=== PATIENT | female | born 1980 | race African-American/Black ===

== ENCOUNTER → 2016-10-09 | Emergency (ER) | payer MEDICAID ==
[~2016-10-09] VITALS: Ht 165.1 cm; Wt 83.5 kg
[~2016-10-09] MED LIST: IV NS 0.9% 1,000 ML BAG IV ONE; IV NS 0.9% 1,000 ML ONE; IV SET PRIMARY 1 EA INFUS.SET MC ONE; KETOROLAC TROMETHAMINE INJ 30 MG/ML VIAL IV ONE; KETOROLAC TROMETHAMINE INJ 30 MG/ML VIAL ONE
--- NOTE | 2016-10-09 09:05 | NUR ---
PT TO ED ROOM 08. LOWER ABDOMINAL PAIN AND SWELLING X 3 MONTHS. A/A/O. AMBULATORY W/SEADY GAIT. SIDE RAILS UP. HOB ELEVATED. CONNECTED TO MONITOR. AWAITING EVALUATION BY ER PROVIDER.
[2016-10-09 09:13] VITALS: BP 130/99
--- NOTE | 2016-10-09 09:30 | NUR ---
R AC G 20 IV STARTED, CONVERTED TO SALINE LOCK. BLOOD TESTS DRAWN AND SEND TO LAB.
--- NOTE | 2016-10-09 09:33 | NUR ---
URINE SAMPLE COLLECTED FROM PATIENTS AND SEND TO LAB.
[2016-10-09 09:41] LABS: BASOPHILS % (AUTO) 0.5 % (0.0-2.0); EOSINOPHILS # (AUTO) 0.1 /CMM (0.0-0.7); EOSINOPHILS % (AUTO) 1.8 % (0.0-6.0); HEMATOCRIT 38 % (33-45); HEMOGLOBIN 12.3 g/dL (11.5-14.8); LYMPHOCYTES # (AUTO) 1.9 /CMM (0.8-4.8); LYMPHOCYTES % (AUTO) 31.1 % (20.0-44.0); MEAN CORPUSCULAR HEMOGLOBIN 25 PG (26.0-33.0); MEAN CORPUSCULAR HGB CONC 33 g/dl (31.0-36.0); MEAN CORPUSCULAR VOLUME 76 fL (82-100); MONOCYTES # (AUTO) 0.5 /CMM (0.1-1.30); MONOCYTES % (AUTO) 8.9 % (2.0-12.0); NEUTROPHILS # (AUTO) 3.5 /CMM (1.8-8.9); NEUTROPHILS % (AUTO) 57.7 % (43.0-81.0); PLATELET COUNT (AUTO) 298 /CMM (150-450); RDW COEFFICIENT OF VARIATION 14.2 (11.5-15.0); RED BLOOD CELL COUNT(AUTO) 4.96 MIL/uL (4.0-5.2)
[2016-10-09 09:43] LABS: APPEARANCE,URINE CLEAR (CLEAR); BILIRUBIN,URINE NEGATIVE (NEGATIVE); BLOOD, URINE TRACE Ery/uL (NEGATIVE); COLOR,URINE YELLOW (YELLOW); KETONES,URINE NEGATIVE (NEGATIVE); LEUKOCYTE ESTERASE ,URINE 1+ (NEGATIVE); NITRITE, URINE NEGATIVE (NEGATIVE); PH,URINE 5.5 (5.0-8.0); PROTEIN,URINE NEGATIVE (NEGATIVE); UGLUCOSE NEGATIVE (NEGATIVE); UROBILINOGEN,URINE 0.2 EU/dL (0.2)
[2016-10-09 09:47] LABS: PREGNANCY TEST URINE QUAL NEGATIVE (NEGATIVE)
[2016-10-09 09:50] LABS: CALCIUM, SERUM 8.7 mg/dL (8.5-10.1); CREATININE 0.9 mg/dL (0.6-1.3)
[2016-10-09 09:53] LABS: ADD URINE CULTURE YES; BACTERIA,URINE Rare /HPF (None Seen); SQUAMOUS EPITHELIAL CELL,UR Few /HPF (None Seen)
[2016-10-09 09:56] LABS: ALBUMIN 3.2 g/dL (3.4-5.0); BILIRUBIN,DIRECT 0.1 mg/dL (0.0-0.2); BILIRUBIN,TOTAL 0.2 mg/dL (0.2-1.0); TOTAL PROTEIN, SERUM 7.5 g/dL (6.4-8.2)
== END | disposition home or self-care (01) ==
LOC: ER 09:02
DX: R10.30 Lower abdominal pain, unspecified (principal); Z90.5 Acquired absence of kidney
CPT/HCPCS: 36415; 74176; 80048; 80076; 81001; 83690; 84703; 85025; 87086; 96360; 99285; A4606; J1885; J7030; Z7610; 81000-TC; 87186-TC

== ENCOUNTER 2016-10-20 06:43 | Inpatient (IN) | payer MEDICAID ==
[~2016-10-20] VITALS: Ht 165.1 cm; Wt 89.8 kg
[2016-10-20] MEDS ORDERED: ONDANSETRON HCL/PF 4 MG/2 ML VIAL ONE ×2 (06:55→11:14)
[2016-10-20] MEDS ORDERED: HYDROMORPHONE 1 MG/1 ML DISP.SYRIN ONE ×2 (06:55→07:59)
[2016-10-20] MEDS ORDERED: IV SET PRIMARY 1 EA INFUS.SET MC ONE ×3 (06:55→10:05)
[2016-10-20] MEDS ORDERED: IV NS 0.9% 1,000 ML ONE ×3 (06:55→11:14)
[2016-10-20] MEDS ORDERED: KETOROLAC TROMETHAMINE INJ 30 MG/ML VIAL ONE (06:55)
[2016-10-20] MEDS ORDERED: KETOROLAC TROMETHAMINE INJ 30 MG/ML VIAL IV ONE ×2 (07:00→08:00)
[2016-10-20] MEDS ORDERED: IV NS 0.9% 1,000 ML BAG IV ONE (07:00)
[2016-10-20] MEDS ORDERED: HYDROMORPHONE INJ 2 MG/ML DISP.SYRIN IV ONE (07:00)
[2016-10-20] MEDS ORDERED: ONDANSETRON HCL/PF 4 MG/2 ML VIAL IVP ONE (07:00)
[2016-10-20 07:12] LABS: BASOPHILS % (AUTO) 0.6 % (0.0-2.0); EOSINOPHILS # (AUTO) 0.2 /CMM (0.0-0.7); EOSINOPHILS % (AUTO) 2.4 % (0.0-6.0); HEMATOCRIT 40 % (33-45); HEMOGLOBIN 13.2 g/dL (11.5-14.8); LYMPHOCYTES # (AUTO) 2.5 /CMM (0.8-4.8); MEAN CORPUSCULAR HEMOGLOBIN 25 PG (26.0-33.0); MEAN CORPUSCULAR HGB CONC 33 g/dl (31.0-36.0); MEAN CORPUSCULAR VOLUME 76 fL (82-100); MONOCYTES # (AUTO) 0.8 /CMM (0.1-1.30); NEUTROPHILS # (AUTO) 3.1 /CMM (1.8-8.9); PLATELET COUNT (AUTO) 313 /CMM (150-450); RDW COEFFICIENT OF VARIATION 14.5 (11.5-15.0); RED BLOOD CELL COUNT(AUTO) 5.26 MIL/uL (4.0-5.2); WHITE BLOOD COUNT (AUTO) 6.5 K/uL (4.3-11.0)
[2016-10-20 07:26] LABS: CALCIUM, SERUM 8.7 mg/dL (8.5-10.1); CREATININE 1.1 mg/dL (0.6-1.3); POTASSIUM 3.9 mmol/L (3.5-5.1)
[2016-10-20 07:33] LABS: ALBUMIN 3.5 g/dL (3.4-5.0); BILIRUBIN,DIRECT 0.1 mg/dL (0.0-0.2); BILIRUBIN,TOTAL 0.2 mg/dL (0.2-1.0)
[2016-10-20] MEDS ORDERED: KETOROLAC TROMETHAMINE 15 MG/ML VIAL ONE (07:38)
[2016-10-20] MEDS ORDERED: HYDROMORPHONE 1 MG/1 ML DISP.SYRIN IV ONE (08:00)
[2016-10-20] MEDS ORDERED: IV NS 0.9% 1,000 ML IV ONE ×2 (08:00→11:30)
[2016-10-20 09:12] LABS: APPEARANCE,URINE CLOUDY (CLEAR); BILIRUBIN,URINE NEGATIVE (NEGATIVE); BLOOD, URINE 3+ Ery/uL (NEGATIVE); COLOR,URINE YELLOW (YELLOW); KETONES,URINE NEGATIVE (NEGATIVE); LEUKOCYTE ESTERASE ,URINE 3+ (NEGATIVE); NITRITE, URINE POSITIVE (NEGATIVE); PROTEIN,URINE NEGATIVE (NEGATIVE); UGLUCOSE NEGATIVE (NEGATIVE); UROBILINOGEN,URINE 0.2 EU/dL (0.2)
[2016-10-20 09:20] LABS: PREGNANCY TEST URINE QUAL NEGATIVE (NEGATIVE)
[2016-10-20 09:26] LABS: BACTERIA,URINE Moderate /HPF (None Seen); RBC,URINE 15-20 /HPF (0-2); SQUAMOUS EPITHELIAL CELL,UR Few /HPF (None Seen); WBC,URINE 80-100 /HPF (0-3)
[2016-10-20] MEDS ORDERED: CEFTRIAXONE 1GM BAG (ER ONLY) 1 GM/50 ML PIGGYBACK IV ONE (10:00)
[2016-10-20] MEDS ORDERED: CEFTRIAXONE 1GM BAG (ER ONLY) 50 ML IV ONE (10:05)
[2016-10-20] MEDS ORDERED: TAMSULOSIN 0.4 MG CAP.SR.24H ONE (11:14)
[2016-10-20] MEDS ORDERED: IV SET PRIMARY PUMP SET 1 EA INFUS.SET MC ONE ×2 (11:21→12:56)
[2016-10-20] MEDS ORDERED: TAMSULOSIN 0.4 MG CAP.SR.24H PO ONE (11:30)
[2016-10-20] MEDS ORDERED: ONDANSETRON HCL/PF - ER 4 MG/2 ML VIAL IV ONE (11:30)
[2016-10-20 12:00] VITALS: BP 140/85
[2016-10-20] MEDS ORDERED: CEFTRIAXONE 1 G VIAL IM SCH (13:00)
[2016-10-20] MEDS ORDERED: KETOROLAC TROMETHAMINE INJ 30 MG/ML VIAL IM SCH (13:00)
[2016-10-20] MEDS ORDERED: Potassium Chloride 10 MEQ in IV NS 0.9% 1,000 ML IV PRN (13:00)
[2016-10-20] MEDS: ACETAMINOPHEN 325 MG TABLET PO PRN ×2 (13:01→20:15)
[2016-10-20 13:51] VITALS: BP 146/85
[2016-10-20] MEDS: ONDANSETRON HCL/PF 4 MG/2 ML VIAL IV PRN ×3 (14:13→22:32)
[2016-10-20] MEDS: HYDROMORPHONE 1 MG/1 ML DISP.SYRIN IV PRN ×3 (14:17→20:17)
[2016-10-20] MEDS ORDERED: SECONDARY IV SET 1 EA INFUS.SET MC ONE (14:24)
[2016-10-20] MEDS: CEFTRIAXONE 1 G in IV D5W 50 ML IV SCH (14:31)
[2016-10-20 16:12] VITALS: BP 104/63
[2016-10-20] MEDS: NICOTINE PATCH (21MG) 21 MG PATCH.TD24 TD SCH (17:11)
[2016-10-20] MEDS ORDERED: KETOROLAC TROMETHAMINE INJ 30 MG/ML VIAL IV SCH (19:00)
[2016-10-20 20:37] VITALS: BP 102/52
[2016-10-20 22:00] VITALS: BP 102/52
[2016-10-20] MEDS ORDERED: TAMSULOSIN 0.4 MG CAP.SR.24H PO SCH (22:00)
[2016-10-21] MEDS: HYDROMORPHONE 1 MG/1 ML DISP.SYRIN IV PRN ×4 (01:45→17:10)
[2016-10-21 06:31] LABS: HEMATOCRIT 33 % (33-45); HEMOGLOBIN 10.9 g/dL (11.5-14.8); LYMPHOCYTES # (AUTO) 0.9 /CMM (0.8-4.8); LYMPHOCYTES % (AUTO) 3.7 % (20.0-44.0); MEAN CORPUSCULAR HEMOGLOBIN 26 PG (26.0-33.0); MEAN CORPUSCULAR HGB CONC 33 g/dl (31.0-36.0); MEAN CORPUSCULAR VOLUME 77 fL (82-100); MONOCYTES # (AUTO) 0.8 /CMM (0.1-1.30); MONOCYTES % (AUTO) 3.4 % (2.0-12.0); NEUTROPHILS # (AUTO) 22.6 /CMM (1.8-8.9); NEUTROPHILS % (AUTO) 92.9 % (43.0-81.0); PLATELET COUNT (AUTO) 188 /CMM (150-450); RDW COEFFICIENT OF VARIATION 14.9 (11.5-15.0); RED BLOOD CELL COUNT(AUTO) 4.26 MIL/uL (4.0-5.2); WHITE BLOOD COUNT (AUTO) 24.3 K/uL (4.3-11.0)
[2016-10-21] MEDS: ONDANSETRON HCL/PF 4 MG/2 ML VIAL IV PRN ×2 (06:34→11:09)
[2016-10-21 06:46] LABS: CALCIUM, SERUM 7.9 mg/dL (8.5-10.1); CREATININE 2.7 mg/dL (0.6-1.3); POTASSIUM 4.3 mmol/L (3.5-5.1)
[2016-10-21 08:00] VITALS: BP 111/62
[2016-10-21] MEDS: NICOTINE PATCH (21MG) 21 MG PATCH.TD24 TD SCH (08:24)
[2016-10-21] MEDS: ACETAMINOPHEN 325 MG TABLET PO PRN (11:13)
[2016-10-21] MEDS ORDERED: IV NS 0.9% 250 ML IV ONE (14:08)
[2016-10-21] MEDS ORDERED: SECONDARY IV SET 1 EA INFUS.SET MC ONE (14:09)
[2016-10-21] MEDS ORDERED: IV SET PRIMARY PUMP SET 1 EA INFUS.SET MC ONE (14:10)
[2016-10-21] MEDS: CEFTRIAXONE 1 G in IV D5W 50 ML IV SCH (14:11)
[2016-10-21 16:00] VITALS: BP 102/57
[2016-10-21] MEDS ORDERED: BISACODYL (5 MG) 5 MG TABLET.DR PO ONE (16:00)
== END 2016-10-21 17:30 | disposition home or self-care (01) | DRG 463 ==
LOC: ER 06:45 → MEDSG2 12:15
PROVIDERS: ADMIT Internal Medicine; ATTEND Internal Medicine
DX: N13.6 Pyonephrosis (principal); B96.20 Unspecified Escherichia coli [E. coli] as the cause of diseases classified elsewhere; F17.210 Nicotine dependence, cigarettes, uncomplicated; Z87.442 Personal history of urinary calculi; Z90.5 Acquired absence of kidney; N39.0 Urinary tract infection, site not specified
CPT/HCPCS: 36415; 80048-TC; 80076-TC; 81000-TC; 83690-TC; 84703-TC; 85025-TC; 87081-TC; 87086-TC; 87186-TC; A4606; J0696; J1170; J1885; J2405; J3480; J7030; J7050; J7060; Z7610

== ENCOUNTER 2018-08-25 22:32 | Emergency (ER) | payer MEDICAID ==
[~2018-08-25] VITALS: Ht 167.6 cm; Wt 104.4 kg
--- NOTE | 2018-08-25 22:50 | NUR ---
PT BIBSELF FROM HOME FOR COUGH/CONGESTION/SORE THROAT X 1YR; PT AAOX4, PT ON MONITOR, VSS, NAD NOTED, VSS. PENDING MD COLIN
[2018-08-26 00:26] LABS: APPEARANCE,URINE Clear (CLEAR); BILIRUBIN,URINE Negative (NEGATIVE); BLOOD, URINE Negative Ery/uL (NEGATIVE); COLOR,URINE Yellow (YELLOW); KETONES,URINE Negative (NEGATIVE); LEUKOCYTE ESTERASE ,URINE Negative (NEGATIVE); NITRITE, URINE Negative (NEGATIVE); PROTEIN,URINE Negative (NEGATIVE); UGLUCOSE Negative (NEGATIVE); UROBILINOGEN,URINE 0.2 EU/dL (0.2)
[2018-08-26 00:32] LABS: BASOPHILS # (AUTO) 0.2 /CMM (0.0-0.2); BASOPHILS % (AUTO) 2.9 % (0.0-2.0); EOSINOPHILS % (AUTO) 4.3 % (0.0-6.0); HEMATOCRIT 39 % (33-45); LYMPHOCYTES # (AUTO) 2.1 /CMM (0.8-4.8); LYMPHOCYTES % (AUTO) 28.5 % (20.0-44.0); MEAN CORPUSCULAR HGB CONC 33 g/dl (31.0-36.0); MEAN CORPUSCULAR VOLUME 78 fL (82-100); MONOCYTES # (AUTO) 0.8 /CMM (0.1-1.30); MONOCYTES % (AUTO) 11.6 % (2.0-12.0); NEUTROPHILS # (AUTO) 3.8 /CMM (1.8-8.9); NEUTROPHILS % (AUTO) 52.7 % (43.0-81.0); PLATELET COUNT (AUTO) 317 /CMM (150-450); RED BLOOD CELL COUNT(AUTO) 5.01 MIL/uL (4.0-5.2); WHITE BLOOD COUNT (AUTO) 7.2 K/uL (4.3-11.0)
[2018-08-26 00:45] LABS: ALBUMIN 3.3 g/dL (3.4-5.0); BILIRUBIN,TOTAL 0.1 mg/dL (0.2-1.0); TOTAL PROTEIN, SERUM 7.9 g/dL (6.4-8.2)
[2018-08-26] MEDS ORDERED: MAG HYDROX/AL HYDROX/SIMETH 30 ML UDC PO ONE (01:00)
[2018-08-26] MEDS ORDERED: MAG HYDROX/AL HYDROX/SIMETH 30 ML UDC ONE (01:07)
[2018-08-26 01:11] LABS: CALCIUM, SERUM 8.5 mg/dL (8.5-10.1); POTASSIUM 4.1 mmol/L (3.5-5.1)
[2018-08-26 01:12] LABS: CREATININE 0.8 mg/dL (0.6-1.3)
--- NOTE | 2018-08-26 01:19 | NUR ---
CALLED [facility] TO HAVE CT READ. 1ST CALL
[2018-08-26 02:34] VITALS: BP 133/88
== END 2018-08-26 02:37 | disposition home or self-care (01) ==
LOC: ER 22:34
DX: K43.9 Ventral hernia without obstruction or gangrene (principal); J06.9 Acute upper respiratory infection, unspecified; F17.200 Nicotine dependence, unspecified, uncomplicated; Z90.5 Acquired absence of kidney; Z90.49 Acquired absence of other specified parts of digestive tract
CPT/HCPCS: 36415; 80048-TC; 80076-TC; 81000-TC; 83690-TC; 84703-TC; 85025-TC

== ENCOUNTER 2019-03-03 19:32 | Emergency (ER) | payer MEDICAID ==
--- NOTE | 2019-03-03 20:11 | NUR ---
CALLED FOR PT IN WR. NO RESPONSE
--- NOTE | 2019-03-03 20:25 | NUR ---
CALLED PATIENT IN WAITING ROOM. NO RESPONSE.
== END 2019-03-03 20:44 | disposition left against medical advice (07) ==
LOC: ER 19:35
DX: Z53.21 Procedure and treatment not carried out due to patient leaving prior to being seen by health care provider (principal)

== ENCOUNTER 2019-03-14 19:32 | Emergency (ER) | payer MEDICAID ==
[~2019-03-14] VITALS: Ht 167.6 cm; Wt 97.5 kg
[2019-03-14 20:21] LABS: APPEARANCE,URINE Clear (CLEAR); BILIRUBIN,URINE Negative (NEGATIVE); BLOOD, URINE Negative Ery/uL (NEGATIVE); COLOR,URINE Yellow (YELLOW); KETONES,URINE Trace (NEGATIVE); LEUKOCYTE ESTERASE ,URINE Negative (NEGATIVE); NITRITE, URINE Negative (NEGATIVE); PROTEIN,URINE 30 mg/dl (NEGATIVE); UGLUCOSE Negative (NEGATIVE); UROBILINOGEN,URINE 0.2 EU/dL (0.2)
--- NOTE | 2019-03-14 20:25 | NUR ---
DAWNSELMelani FROM HOME TO ER BED 9. AAOX4. NO RESP DISTRESS NOTED, BREATHING EVEN AND UNLABORED. AMBULATORY. MULTIPLE COMPLAINTS FROM PT. 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 PT REPORTS PAIN LESS TODAY. SHE ALSO C/O MID LOWER BACK PAIN THAT IS SHOOTING UP TO HER NECK, RATES IT AT 8/10.SHE ALSO C/O VAGINAL DISHARGE WHICH WHITE, BURNING SENSATION AGGREVATED BY WIPING. BRAN MARTINEZ AT BEDSIDE FOR EVAL. ORDERS RECEIVED NOTED AND CARRIED OUT. IV LINE OBTAINED ON THE R AC 20G. BLOOD DRAWN AND GIVEN TO TIPPING MACHINE OPERATOR AUTOMATIC AT BEDSIDE. PELVIC EXAM SET UP READY FOR PA.
[2019-03-14 20:26] LABS: BASOPHILS % (AUTO) 0.5 % (0.0-2.0); EOSINOPHILS % (AUTO) 4.3 % (0.0-6.0); HEMATOCRIT 41 % (33-45); HEMOGLOBIN 13.3 g/dL (11.5-14.8); LYMPHOCYTES # (AUTO) 2.7 /CMM (0.8-4.8); LYMPHOCYTES % (AUTO) 33.2 % (20.0-44.0); MEAN CORPUSCULAR HGB CONC 32 g/dl (31.0-36.0); MEAN CORPUSCULAR VOLUME 77 fL (82-100); MONOCYTES # (AUTO) 0.9 /CMM (0.1-1.30); MONOCYTES % (AUTO) 11.4 % (2.0-12.0); NEUTROPHILS # (AUTO) 4.1 /CMM (1.8-8.9); NEUTROPHILS % (AUTO) 50.6 % (43.0-81.0); PLATELET COUNT (AUTO) 388 /CMM (150-450); RED BLOOD CELL COUNT(AUTO) 5.38 MIL/uL (4.0-5.2); WHITE BLOOD COUNT (AUTO) 8.2 K/uL (4.3-11.0)
[2019-03-14] MEDS ORDERED: IV NS 0.9% 1,000 ML BAG IV ONE (20:30)
[2019-03-14] MEDS ORDERED: KETOROLAC TROMETHAMINE INJ 30 MG/ML VIAL IV ONE (20:30)
[2019-03-14] MEDS ORDERED: ONDANSETRON HCL/PF 4 MG/2 ML VIAL IVP ONE (20:30)
[2019-03-14] MEDS ORDERED: FAMOTIDINE/PF INJ 20 MG/2 ML VIAL IV ONE ×2 (20:30→20:33)
[2019-03-14] MEDS ORDERED: ONDANSETRON HCL/PF 4 MG/2 ML VIAL ONE (20:32)
[2019-03-14 20:34] LABS: CALCIUM, SERUM 9.3 mg/dL (8.5-10.1); POTASSIUM 3.8 mmol/L (3.5-5.1)
[2019-03-14 20:38] LABS: BACTERIA,URINE Few /HPF (None Seen); RBC,URINE 0-2 /HPF (0-2); SQUAMOUS EPITHELIAL CELL,UR Few /HPF (None Seen); WBC,URINE 0-2 /HPF (0-3)
[2019-03-14 20:39] LABS: ALBUMIN 3.4 g/dL (3.4-5.0); BILIRUBIN,TOTAL 0.1 mg/dL (0.2-1.0)
--- NOTE | 2019-03-14 20:42 | NUR ---
BRAN MARTINEZ AT BEDSIDE FOR PELVIC EXAM
--- NOTE | 2019-03-14 22:09 | NUR ---
Patient discharged to home in stable condition. Written and verbal after care instructions given. Patient verbalizes understanding of instruction.IV removed. Catheter intact and site benign. Pressure and 4x4 applied to site. No bleeding noted. Pt ambulatory with a steady gait
[2019-03-14 22:10] VITALS: BP 128/76
== END 2019-03-14 22:11 | disposition home or self-care (01) ==
LOC: ER 19:34
DX: S29.012A Strain of muscle and tendon of back wall of thorax, initial encounter (principal); J98.01 Acute bronchospasm; R10.84 Generalized abdominal pain; Z90.5 Acquired absence of kidney; Z90.49 Acquired absence of other specified parts of digestive tract; X58.XXXA Exposure to other specified factors, initial encounter; Y93.89 Activity, other specified; Y92.89 Other specified places as the place of occurrence of the external cause; Y99.8 Other external cause status
CPT/HCPCS: 36415; 71045; 80048; 80076; 81001; 83690; 84484; 84703; 87210; 85025; 96374; 96375; 99284; J2405; J3490; J7030; 81000-TC